=== PATIENT | female | born 1985 | race Caucasian/White ===

== ENCOUNTER 2022-06-09 22:44 | Emergency (ER) | payer BC ==
[~2022-06-09] VITALS: Ht 165.1 cm; Wt 49.9 kg
[2022-06-09] MEDS ORDERED: LORATADINE 10 MG TABLET PO SCH (23:15)
[2022-06-09] MEDS ORDERED: FAMOTIDINE 20 MG TABLET PO ONE (23:15)
[2022-06-09] MEDS ORDERED: methylPREDNISolone SOD SUCC 40 MG/ML VIAL IM ONE (23:15)
[2022-06-09] MEDS ORDERED: FAMOTIDINE 20 MG TABLET ONE (23:29)
[2022-06-09] MEDS ORDERED: methylPREDNISolone SOD SUCC 40 MG/ML VIAL ONE ×2 (23:30→23:40)
[2022-06-09] MEDS ORDERED: LORATADINE 10 MG TABLET ONE (23:30)
[2022-06-09] MEDS ORDERED: methylPREDNISolone SOD SUCC 125 MG/2 ML VIAL ONE (23:43)
--- NOTE | 2022-06-10 00:25 | NUR ---
Patient is resting comfortably in bed.
[2022-06-10] MEDS ORDERED: EPIN0.3P3 IM (00:44)
[2022-06-10] MEDS ORDERED: PRED20TA PO (00:44)
--- NOTE | 2022-06-10 00:59 | NUR ---
Patient discharged to home in stable condition. Written and verbal after care instructions given. Patient verbalizes understanding of instructions. Stressed follow up or return to ER for worsening s/s. Patient walked out with steady gait.
[2022-06-10 01:01] VITALS: BP 112/85
== END 2022-06-10 01:02 | disposition home or self-care (01) ==
LOC: ER 22:49
DX: T78.40XA Allergy, unspecified, initial encounter (principal); L50.9 Urticaria, unspecified; J45.909 Unspecified asthma, uncomplicated; Z88.8 Allergy status to other drugs, medicaments and biological substances; Z79.899 Other long term (current) drug therapy; Y92.89 Other specified places as the place of occurrence of the external cause
CPT/HCPCS: A4663; J2920; J2930